=== PATIENT | male | born 1945 | race Asian ===

== ENCOUNTER 2016-12-14 14:59 | Outpatient (CLI) | payer MEDICARE, OTHER | END 2016-12-14 15:00 | disposition home or self-care (01) | LOC: LAB.N 14:59 | PROVIDERS: ATTEND Urology | DX: R97.20 Elevated prostate specific antigen [PSA] (principal) | CPT/HCPCS: 36415; 84153 ==

== ENCOUNTER 2017-06-01 10:11 | Outpatient (CLI) | payer MEDICARE, OTHER ==
[2017-06-01 13:10] LABS: BASOPHILS % (AUTO) 0.4 %; EOSINOPHILS # (AUTO) 0.2 10^3/uL (0.0-0.7); EOSINOPHILS % (AUTO) 3.4 %; HCT - HEMATOCRIT 33.9 % (42.0-52.0); HGB - HEMOGLOBIN 11.1 g/dL (14.0-18.0); LYMPHOCYTES # (AUTO) 2.6 10^3/uL (1.5-3.5); LYMPHOCYTES % (AUTO) 50.6 %; MEAN CORPUSCULAR HEMOGLOBIN 26.7 pg (27.0-31.0); MEAN CORPUSCULAR HGB CONC 32.6 g/dL (32.0-36.0); MEAN CORPUSCULAR VOLUME 81.9 fL (80.0-94.0); MEAN PLATELET VOLUME 7.7 fL (7.4-11.4); MONOCYTES # (AUTO) 0.5 10^3/uL (0.0-1.0); MONOCYTES % (AUTO) 8.7 %; NEUTROPHILS # (AUTO) 1.9 10^3/uL (1.5-6.6); NEUTROPHILS % (AUTO) 36.9 %; RED BLOOD COUNT 4.14 10^6/uL (4.70-6.10); RED CELL DISTRIBUTION WIDTH 17.1 % (12.0-15.0); UNCORRECTED WHITE BLOOD COUNT 5.2 x10^3/uL; WHITE BLOOD COUNT 5.2 x10^3/uL (4.8-10.8)
[2017-06-01 13:26] LABS: ALBUMIN/GLOBULIN RATIO 1.3 (1.0-2.2); BILIRUBIN,TOTAL 0.4 mg/dL (0.2-1.0); BUN - BLOOD UREA NITROGEN 20 mg/dL (6-20); CALCIUM 9.4 mg/dL (8.5-10.3); CARBON DIOXIDE - CO2 27 mmol/L (21-32); CHLORIDE 108 mmol/L (101-111); CHOL/HDL RATIO 3.7 (<5.0); CHOLESTEROL 183 mg/dL; CREATININE 1.3 mg/dL (0.6-1.2); GFR - MDRD 54 (>89); GLUCOSE 99 mg/dL (70-100); HDL CHOLESTEROL 49 mg/dL; LDL/HDL RATIO 1.9 (<3.6); POTASSIUM 3.8 mmol/L (3.5-5.0); SODIUM 142 mmol/L (135-145); TOTAL PROTEIN 7.2 g/dL (6.7-8.2); TRIGLYCERIDES 214 mg/dL; VLDL CHOLESTEROL 43 mg/dL
== END 2017-06-01 10:12 | disposition home or self-care (01) ==
LOC: LAB.N 10:11
PROVIDERS: ATTEND Physician Assistant
DX: E78.5 Hyperlipidemia, unspecified (principal); I10 Essential (primary) hypertension
CPT/HCPCS: 36415; 80053; 80061; 84443; 85025

== ENCOUNTER 2018-05-20 08:00 | Outpatient (CLI) | payer MEDICARE, OTHER ==
[2018-05-20 19:05] LABS: BASOPHILS % (AUTO) 0.3 %; EOSINOPHILS # (AUTO) 0.1 10^3/uL (0.0-0.7); EOSINOPHILS % (AUTO) 2.4 %; HGB - HEMOGLOBIN 10.5 g/dL (14.0-18.0); LYMPHOCYTES # (AUTO) 1.4 10^3/uL (1.5-3.5); LYMPHOCYTES % (AUTO) 26.9 %; MEAN CORPUSCULAR HEMOGLOBIN 26.2 pg (27.0-31.0); MEAN CORPUSCULAR HGB CONC 31.9 g/dL (32.0-36.0); MEAN PLATELET VOLUME 7.7 fL (7.4-11.4); MONOCYTES # (AUTO) 0.4 10^3/uL (0.0-1.0); MONOCYTES % (AUTO) 8.6 %; NEUTROPHILS # (AUTO) 3.2 10^3/uL (1.5-6.6); NEUTROPHILS % (AUTO) 61.8 %; PLT - PLATELET COUNT 255 10^3/uL (130-450); RED BLOOD COUNT 4.02 10^6/uL (4.70-6.10); RED CELL DISTRIBUTION WIDTH 16.6 % (12.0-15.0); WHITE BLOOD COUNT 5.2 x10^3/uL (4.8-10.8)
[2018-05-20 19:15] LABS: PSA FREE 5.579 ng/mL (0.16-2.81)
[2018-05-20 19:16] LABS: PSA TOTAL 20.067 ng/mL (0.000-2.000)
[2018-05-20 19:21] LABS: ALBUMIN 3.9 g/dL (3.2-5.5); ALBUMIN/GLOBULIN RATIO 1.1 (1.0-2.2); ALKALINE PHOSPHATASE 89 IU/L (42-121); ALT ALANINE AMINOTRANSFERASE 18 IU/L (10-60); AST ASPARTATE AMINOTRANSFERASE 22 IU/L (10-42); BILIRUBIN,TOTAL 0.8 mg/dL (0.2-1.0); BUN - BLOOD UREA NITROGEN 26 mg/dL (6-20); CALCIUM 9.1 mg/dL (8.5-10.3); CARBON DIOXIDE - CO2 26 mmol/L (21-32); CHLORIDE 105 mmol/L (101-111); CHOL/HDL RATIO 2.2 (<5.0); CHOLESTEROL 146 mg/dL; CREATININE 1.4 mg/dL (0.6-1.2); GFR - MDRD 50 (>89); GLUCOSE 87 mg/dL (70-100); HDL CHOLESTEROL 65 mg/dL; LDL CHOLESTEROL,CALCULATED 65 mg/dL; SODIUM 136 mmol/L (135-145); TOTAL PROTEIN 7.6 g/dL (6.7-8.2); VLDL CHOLESTEROL 16 mg/dL
== END 2018-05-20 08:01 | disposition home or self-care (01) ==
LOC: LAB.N 08:00
PROVIDERS: ATTEND Nurse Practitioner Gerontology
DX: I12.9 Hypertensive chronic kidney disease with stage 1 through stage 4 chronic kidney disease, or unspecified chronic kidney disease (principal); N18.9 Chronic kidney disease, unspecified; N40.0 Benign prostatic hyperplasia without lower urinary tract symptoms
CPT/HCPCS: 36415; 80053; 80061; 83721; 84154; 85025

== ENCOUNTER 2018-12-06 11:19 | Outpatient (CLI) | payer MEDICARE, OTHER ==
[2018-12-06] MEDS ORDERED: IOVERSOL 320 100 ML VIAL IVP ONE ×2 (11:48→12:28)
[2018-12-06 11:52] LABS: CREATININE 1.3 mg/dL (0.6-1.2)
--- NOTE | 2018-12-08 23:21 | CT Report ---
Reason: ASYMPTOMATIC MICROSCOPIC HEMATURIA Procedure Date: 12/06/2018 Accession Number: [id number] / [id number] Procedure: CT - IVP CPT Code: FULL RESULT: EXAM: CT ABDOMEN AND PELVIS WITHOUT AND WITH CONTRAST (CT IVP) EXAM DATE: 12/06/2018 12:35 PM. CLINICAL HISTORY: Asymptomatic microscopic hematuria. COMPARISONS: 04/30/2012 6:15 PM. TECHNIQUE: Routine helical imaging was performed through the kidneys, ureters and bladder in the precontrast, postcontrast and delayed phase. IV Contrast: 100 mL Optiray 320. Reconstructions: Coronal and sagittal. In accordance with CT protocol optimization, one or more of the following dose reduction techniques were utilized for this exam: automated exposure control, adjustment of mA and/or KV based on patient size, or use of iterative reconstructive technique. FINDINGS: Lung Bases: Unremarkable. Right Kidney/Ureter: Couple of nonobstructing stones measuring up to 4 x 4 mm. No ureteral stones, hydronephrosis, or solid-appearing masses. Incidental multiple cysts measuring up to 7 x 6 cm medially off the upper pole. Left Kidney/Ureter: Couple of nonobstructing stones measuring up to 8 x 6 mm. No ureteral stones, hydronephrosis, or solid-appearing masses. Incidental multiple cysts measuring up to 9 x 9 cm anteriorly off the interpolar portion of the kidney. Other Abdominal Organs: The liver, spleen, pancreas, gallbladder, and adrenal glands are unremarkable with a couple of small left liver probable cysts. Peritoneal Cavity/Bowel: No free fluid, free air or adenopathy. No masses. Bowel loops appear unremarkable with exception of colonic diverticulosis. Pelvic Organs: Severely enlarged prostate with median lobe hypertrophy indenting into the inferior aspect of the bladder. The bladder otherwise appears unremarkable. Vasculature: Normal. Bones: No significant abnormality. Other: None. IMPRESSION: 1. Bilateral nonobstructing renal stones measuring up to 8 mm on the left. 2. No solid-appearing renal or urothelial mass seen. 3. Bilateral renal cyst measuring up to 9 cm on the left and 7 cm on the right. 4. Severely enlarged prostate with median lobe hypertrophy indenting into the inferior aspect of the bladder. 5. Colonic diverticulosis. RADIA
== END 2018-12-06 11:20 | disposition home or self-care (01) ==
LOC: DI 11:19
PROVIDERS: ATTEND Urology
DX: N20.0 Calculus of kidney (principal); Q61.02 Congenital multiple renal cysts; N40.0 Benign prostatic hyperplasia without lower urinary tract symptoms; K57.30 Diverticulosis of large intestine without perforation or abscess without bleeding
CPT/HCPCS: 36415; 74178; 82565; 84520; Q9967

== ENCOUNTER 2019-07-09 08:00 | Outpatient (CLI) | payer MEDICARE, OTHER ==
[2019-07-09 18:59] LABS: BASOPHILS % (AUTO) 0.2 %; EOSINOPHILS # (AUTO) 0.1 10^3/uL (0.0-0.7); EOSINOPHILS % (AUTO) 2.5 %; HGB - HEMOGLOBIN 11.2 g/dL (14.0-18.0); LYMPHOCYTES # (AUTO) 1.5 10^3/uL (1.5-3.5); LYMPHOCYTES % (AUTO) 34.5 %; MEAN CORPUSCULAR HEMOGLOBIN 25.3 pg (27.0-31.0); MEAN CORPUSCULAR HGB CONC 30.3 g/dL (32.0-36.0); MEAN CORPUSCULAR VOLUME 83.7 fL (80.0-94.0); MEAN PLATELET VOLUME 10.1 fL (7.4-11.4); MONOCYTES # (AUTO) 0.4 10^3/uL (0.0-1.0); MONOCYTES % (AUTO) 8.5 %; NEUTROPHILS # (AUTO) 2.4 10^3/uL (1.5-6.6); NEUTROPHILS % (AUTO) 54.1 %; PLT - PLATELET COUNT 233 10^3/uL (130-450); RED BLOOD COUNT 4.42 10^6/uL (4.70-6.10); RED CELL DISTRIBUTION WIDTH 18.1 % (12.0-15.0); WHITE BLOOD COUNT 4.5 x10^3/uL (4.8-10.8)
[2019-07-09 19:18] LABS: PSA FREE 2.215 ng/mL (0.16-2.81)
[2019-07-09 19:19] LABS: PSA TOTAL 8.541 ng/mL (0.000-2.000)
[2019-07-09 19:20] LABS: ALBUMIN 4.1 g/dL (3.2-5.5); ALBUMIN/GLOBULIN RATIO 1.2 (1.0-2.2); ALKALINE PHOSPHATASE 67 IU/L (42-121); ALT ALANINE AMINOTRANSFERASE 17 IU/L (10-60); AST ASPARTATE AMINOTRANSFERASE 21 IU/L (10-42); BILIRUBIN,TOTAL 0.5 mg/dL (0.2-1.0); BUN - BLOOD UREA NITROGEN 24 mg/dL (6-20); CALCIUM 9.4 mg/dL (8.5-10.3); CARBON DIOXIDE - CO2 24 mmol/L (21-32); CHLORIDE 107 mmol/L (101-111); CHOL/HDL RATIO 2.6 (<5.0); CHOLESTEROL 193 mg/dL; CREATININE 1.3 mg/dL (0.6-1.2); GFR - MDRD 54 (>89); GLUCOSE 89 mg/dL (70-100); HDL CHOLESTEROL 74 mg/dL; LDL CHOLESTEROL,CALCULATED 106 mg/dL; LDL/HDL RATIO 1.4 (<3.6); SODIUM 139 mmol/L (135-145); TOTAL PROTEIN 7.4 g/dL (6.7-8.2); VLDL CHOLESTEROL 13 mg/dL
== END 2019-07-09 23:59 | disposition home or self-care (01) ==
LOC: LAB.N 08:00
PROVIDERS: ATTEND Nurse Practitioner Gerontology
DX: D64.9 Anemia, unspecified (principal); I12.9 Hypertensive chronic kidney disease with stage 1 through stage 4 chronic kidney disease, or unspecified chronic kidney disease; N18.9 Chronic kidney disease, unspecified; N40.0 Benign prostatic hyperplasia without lower urinary tract symptoms
CPT/HCPCS: 36415; 80053; 80061; 83721; 84153; 84154; 85025

== ENCOUNTER 2019-11-24 14:41 | Outpatient (CLI) | payer MEDICARE, OTHER ==
--- NOTE | 2019-11-25 10:17 | XRAY Report ---
Reason: CALCULUS OF KIDNEY Procedure Date: 11/24/2019 Accession Number: [id number] / [id number] Procedure: XR - Abdomen 1 View X-Ray CPT Code: 48009 Final Report FULL RESULT: EXAM: ABDOMEN RADIOGRAPHY EXAM DATE: 11/24/2019 03:26 PM. CLINICAL HISTORY: CALCULUS OF KIDNEY. COMPARISON: ABDOMEN 1 VIEW 05/26/2019 4:28 PM. TECHNIQUE: 1 view. FINDINGS: Bowel Gas Pattern: Within normal limits. No dilated loops. Other: Left midpole 1 cm and 3 mm calcification stable. Right midpole 3-4 mm calcification. IMPRESSION: Bilateral renal calcifications RADIA
== END 2019-11-24 14:42 | disposition home or self-care (01) ==
LOC: DI 14:41
PROVIDERS: ATTEND Urology
DX: N20.0 Calculus of kidney (principal)
CPT/HCPCS: 74018

== ENCOUNTER 2021-03-03 08:00 | Outpatient (CLI) | payer MEDICARE, OTHER ==
[2021-03-03 18:52] LABS: BASOPHILS % (AUTO) 0.8 %; EOSINOPHILS # (AUTO) 0.1 10^3/uL (0.0-0.7); EOSINOPHILS % (AUTO) 2.5 %; HGB - HEMOGLOBIN 14.1 g/dL (14.0-18.0); LYMPHOCYTES # (AUTO) 1.7 10^3/uL (1.5-3.5); LYMPHOCYTES % (AUTO) 32.8 %; MEAN CORPUSCULAR HEMOGLOBIN 29.6 pg (27.0-31.0); MEAN CORPUSCULAR VOLUME 92.4 fL (80.0-94.0); MEAN PLATELET VOLUME 10.8 fL (7.4-11.4); MONOCYTES # (AUTO) 0.4 10^3/uL (0.0-1.0); NEUTROPHILS # (AUTO) 2.9 10^3/uL (1.5-6.6); NEUTROPHILS % (AUTO) 56.5 %; PLT - PLATELET COUNT 218 10^3/uL (130-450); RED BLOOD COUNT 4.76 10^6/uL (4.70-6.10); RED CELL DISTRIBUTION WIDTH 13.4 % (12.0-15.0); WHITE BLOOD COUNT 5.2 x10^3/uL (4.8-10.8)
[2021-03-03 19:14] LABS: ALBUMIN 4.3 g/dL (3.2-5.5); ALBUMIN/GLOBULIN RATIO 1.4 (1.0-2.2); ALKALINE PHOSPHATASE 89 IU/L (42-121); ALT ALANINE AMINOTRANSFERASE 19 IU/L (10-60); AST ASPARTATE AMINOTRANSFERASE 23 IU/L (10-42); BILIRUBIN,TOTAL 0.6 mg/dL (0.2-1.0); BUN - BLOOD UREA NITROGEN 18 mg/dL (6-20); CALCIUM 9.5 mg/dL (8.5-10.3); CARBON DIOXIDE - CO2 24 mmol/L (21-32); CHLORIDE 107 mmol/L (101-111); CHOL/HDL RATIO 3.5 (<5.0); CHOLESTEROL 207 mg/dL; GFR - MDRD 73 (>89); GLUCOSE 89 mg/dL (70-100); HDL CHOLESTEROL 59 mg/dL; LDL CHOLESTEROL,CALCULATED 119 mg/dL; POTASSIUM 4.1 mmol/L (3.5-5.0); SODIUM 140 mmol/L (135-145); TOTAL PROTEIN 7.3 g/dL (6.7-8.2); TRIGLYCERIDES 144 mg/dL; VLDL CHOLESTEROL 29 mg/dL
[2021-03-03 19:23] LABS: THYROID STIMULATING HORMONE 1.01 uIU/mL (0.34-5.60)
== END 2021-03-03 23:59 | disposition home or self-care (01) ==
LOC: LAB.WCP 08:00
PROVIDERS: ATTEND Nurse Practitioner Family
DX: D64.9 Anemia, unspecified (principal); I12.9 Hypertensive chronic kidney disease with stage 1 through stage 4 chronic kidney disease, or unspecified chronic kidney disease; N18.9 Chronic kidney disease, unspecified; E78.5 Hyperlipidemia, unspecified
CPT/HCPCS: 36415; 80053; 80061; 83721; 84443; 85025

== ENCOUNTER 2021-04-11 08:00 | Outpatient (CLI) | payer MEDICARE, OTHER ==
[2021-04-11 12:25] LABS: BASOPHILS % (AUTO) 0.4 %; EOSINOPHILS # (AUTO) 0.1 10^3/uL (0.0-0.7); EOSINOPHILS % (AUTO) 2.6 %; HCT - HEMATOCRIT 42.4 % (42.0-52.0); HGB - HEMOGLOBIN 13.4 g/dL (14.0-18.0); LYMPHOCYTES # (AUTO) 1.5 10^3/uL (1.5-3.5); LYMPHOCYTES % (AUTO) 28.9 %; MEAN CORPUSCULAR HEMOGLOBIN 29.5 pg (27.0-31.0); MEAN CORPUSCULAR HGB CONC 31.6 g/dL (32.0-36.0); MEAN CORPUSCULAR VOLUME 93.2 fL (80.0-94.0); MEAN PLATELET VOLUME 10.2 fL (7.4-11.4); MONOCYTES # (AUTO) 0.4 10^3/uL (0.0-1.0); MONOCYTES % (AUTO) 8.3 %; NEUTROPHILS # (AUTO) 3.1 10^3/uL (1.5-6.6); NEUTROPHILS % (AUTO) 59.4 %; PLT - PLATELET COUNT 270 10^3/uL (130-450); RED BLOOD COUNT 4.55 10^6/uL (4.70-6.10); RED CELL DISTRIBUTION WIDTH 13.7 % (12.0-15.0); WHITE BLOOD COUNT 5.3 x10^3/uL (4.8-10.8)
[2021-04-11 13:00] LABS: ALBUMIN 4.1 g/dL (3.2-5.5); ALBUMIN/GLOBULIN RATIO 1.4 (1.0-2.2); BILIRUBIN,TOTAL 0.7 mg/dL (0.2-1.0); CALCIUM 9.3 mg/dL (8.5-10.3); CREATININE 1.2 mg/dL (0.6-1.2); POTASSIUM 4.1 mmol/L (3.5-5.0); TOTAL PROTEIN 7.1 g/dL (6.7-8.2)
== END 2021-04-11 23:59 | disposition home or self-care (01) ==
LOC: LAB.WCP 08:00
PROVIDERS: ATTEND Family Medicine
DX: R10.13 Epigastric pain (principal); R97.20 Elevated prostate specific antigen [PSA]
CPT/HCPCS: 36415; 80053; 83690; 84153; 85025

== ENCOUNTER 2021-04-13 08:24 | Outpatient (CLI) | payer MEDICARE, OTHER ==
--- NOTE | 2021-04-13 10:07 | Ultrasound Report ---
PROCEDURE: Abdomen Complete INDICATIONS: EPIGASTRIC ABD PAIN, ELEVATED LIPASE TECHNIQUE: Real-time scanning was performed of the abdominal and retroperitoneal organs, with image documentatio n. COMPARISON: Noncontrast CT 12/06/2018, ultrasound abdomen report 04/30/2012 FINDINGS: Liver: Liver is normal in size and homogeneous in echotexture. Small hepatic simple cyst measuring 16 x 13 mm and 9 x 8 mm. Gallbladder: Unremarkable. No pericholecystic fluid or gallbladder wall thickening. Biliary ducts: Intrahepatic bile ducts are non-dilated. Extrahepatic bile duct caliber measures 4.2 mm. Normal is 6-7 mm or less in diameter, or 10 mm or less post-cholecystectomy. Pancreas: Not well visualized Spleen: Spleen is normal in size and homogeneous in echotexture. Kidneys: Right kidney measures 10.4 cm long; left kidney measures 10.6 cm long. Both kidneys have a ppropriate cortical thickness. Stable bilateral renal cysts present. Largest on the right measures 5. 25 4.2 x 3.6 cm and the largest on the left measures 9.7 x 7.9 x 9.3 cm. There is a 1.1 cm nonobstruc ting shadowing left renal calculus. No hydronephrosis. Aorta: Visualized aorta is normal in caliber at less than 3 cm. Iliacs: Proximal common iliac arteries are normal in caliber at less than 2.5 cm. IVC: Intrahepatic inferior vena cava is patent. Miscellaneous: No free abdominal fluid. IMPRESSION: 1. Stable large bilateral renal simple cysts, largest measures 9.7 cm on the left. 2. Small hepatic cysts also similar to prior exams 3. Nonvisualized pancreas overlying bowel gas Reviewed by: Derrek Butt MD on 04/13/2021 9:06 AM [facility] Approved by: Derrek Butt MD on 04/13/2021 9:06 AM [facility] Station ID: [id number]
== END 2021-04-13 08:25 | disposition home or self-care (01) ==
LOC: DI 08:24
PROVIDERS: ATTEND Family Medicine
DX: R10.13 Epigastric pain (principal); R74.8 Abnormal levels of other serum enzymes; N28.1 Cyst of kidney, acquired; K76.89 Other specified diseases of liver

== ENCOUNTER 2022-10-10 14:44 | Outpatient (CLI) | payer MEDICARE, OTHER ==
[2022-10-10 18:06] LABS: ALBUMIN 4.1 g/dL (3.2-5.5); ALBUMIN/GLOBULIN RATIO 1.2 (1.0-2.2); ALKALINE PHOSPHATASE 90 IU/L (42-121); ALT ALANINE AMINOTRANSFERASE 20 IU/L (10-60); AST ASPARTATE AMINOTRANSFERASE 31 IU/L (10-42); BILIRUBIN,TOTAL 0.8 mg/dL (0.2-1.0); BUN - BLOOD UREA NITROGEN 21 mg/dL (6-20); CALCIUM 9.5 mg/dL (8.5-10.3); CARBON DIOXIDE - CO2 29 mmol/L (21-32); CHLORIDE 105 mmol/L (101-111); CHOL/HDL RATIO 3.5 (<5.0); CHOLESTEROL 218 mg/dL; CREATININE 1.3 mg/dL (0.6-1.2); GFR - MDRD 54 (>89); GLUCOSE 99 mg/dL (70-100); HDL CHOLESTEROL 63 mg/dL; LDL CHOLESTEROL,CALCULATED 142 mg/dL; LDL/HDL RATIO 2.3 (<3.6); POTASSIUM 4.4 mmol/L (3.5-5.0); SODIUM 143 mmol/L (135-145); TOTAL PROTEIN 7.5 g/dL (6.7-8.2); TRIGLYCERIDES 66 mg/dL; VLDL CHOLESTEROL 13 mg/dL
[2022-10-10 18:10] LABS: BASOPHILS % (AUTO) 0.5 %; EOSINOPHILS # (AUTO) 0.2 10^3/uL (0.0-0.7); EOSINOPHILS % (AUTO) 3.3 %; LYMPHOCYTES % (AUTO) 35.5 %; MEAN CORPUSCULAR HEMOGLOBIN 30.4 pg (27.0-31.0); MEAN CORPUSCULAR HGB CONC 31.8 g/dL (32.0-36.0); MEAN CORPUSCULAR VOLUME 95.4 fL (80.0-94.0); MONOCYTES # (AUTO) 0.5 10^3/uL (0.0-1.0); MONOCYTES % (AUTO) 8.7 %; NEUTROPHILS # (AUTO) 2.9 10^3/uL (1.5-6.6); NEUTROPHILS % (AUTO) 51.8 %; PLT - PLATELET COUNT 239 10^3/uL (130-450); RED BLOOD COUNT 4.61 10^6/uL (4.70-6.10); WHITE BLOOD COUNT 5.5 x10^3/uL (4.8-10.8)
[2022-10-10 18:28] LABS: THYROID STIMULATING HORMONE 1.39 uIU/mL (0.34-5.60)
[2022-10-10 20:34] LABS: ESTIMATED AVERAGE GLUCOSE 128 mg/dL (70-100); HEMOGLOBIN A1c% 6.1 % (4.27-6.07)
== END 2022-10-10 14:45 | disposition home or self-care (01) ==
LOC: LAB.N 14:44
PROVIDERS: ATTEND Nurse Practitioner Family
DX: I12.9 Hypertensive chronic kidney disease with stage 1 through stage 4 chronic kidney disease, or unspecified chronic kidney disease (principal); N18.9 Chronic kidney disease, unspecified; N40.0 Benign prostatic hyperplasia without lower urinary tract symptoms; E78.5 Hyperlipidemia, unspecified
CPT/HCPCS: 36415; 80053; 80061; 83036; 83721; 84153; 84443; 85025

== ENCOUNTER 2023-01-06 11:16 | Outpatient (CLI) | payer MEDICARE, OTHER ==
[2023-01-06] MEDS ORDERED: iohexoL-300 100 ML VIAL ONE (11:41)
[2023-01-06 12:04] LABS: CREATININE 1.4 mg/dL (0.6-1.2)
[2023-01-06] MEDS ORDERED: iohexoL-300 100 ML VIAL IVP ONE (15:50)
--- NOTE | 2023-01-06 22:03 | CT Report ---
PROCEDURE: IVP INDICATIONS: MICROSCOPIC HEMATURIA CONTRAST: 140ml omni 300 TECHNIQUE: After the administration of intravenous contrast, 5 mm thick sections acquired from the diaphragms to the symphysis. 5 mm thick coronal and sagittal reformats were acquired. For radiation dose reducti on, the following was used: automated exposure control, adjustment of mA and/or kV according to rafita ent size. COMPARISON: None. FINDINGS: Image quality: Excellent. Lung bases: There is bibasilar atelectasis. There is bibasilar atelectasis. Heart size is normal. Urinary system: Both kidneys are normal in size and enhancement. Contrast-filled renal calyces are normal in morphology. Contrast filled portions of both ureters are normal in caliber. Both kidneys h ave multiple cysts, the largest on the right measuring 4 cm in the largest on the left measuring 10 c m. Both kidneys have nonobstructing calculi measuring 6 mm on the right and 9 mm on the left. Bladder wall thickness is normal. Solid organs: There is a 1.5 cm cyst in the left lobe of the liver. Gallbladder is normal. Biliary system is non dilated. Pancreas enhances normally. No adrenal nodules. Peritoneum and bowel: Bowel loops demonstrate normal wall thickness and caliber. There is diverticu losis without evidence of diverticulitis. No free fluid or air. Nodes and vessels: No retroperitoneal or mesenteric adenopathy by size criteria. Aorta and inferior vena cava are normal in size. Abdominal wall: No ventral hernias. Fat-containing inguinal hernias. Pelvis: No pathologic free pelvic fluid. No inguinal hernias or adenopathy. The prostate is enlarg ed measuring 5.5 x 5.5 cm and bulges into the posterior wall of the bladder. Bones: No suspicious bony lesions. No vertebral body compression fractures. IMPRESSION: 1. No obstructing nephroureterolithiasis. 2. No solid masses. 3. Multiple bilateral simple renal cysts the largest measuring 4 cm on the right and 10 cm in the lef t. 4. Prostatomegaly measuring 5.5 x 5.5 cm axially. The prostate bulges into the posterior wall of the bladder. Reviewed by: Suleman Vences on 01/06/2023 9:02 PM [facility] [place] Approved by: Suleman Vences on 01/06/2023 9:02 PM [facility] [place] Station ID: [id number]
== END 2023-01-06 11:17 | disposition home or self-care (01) ==
LOC: LAB 11:16
PROVIDERS: ATTEND Urology
DX: R31.29 Other microscopic hematuria (principal); N28.1 Cyst of kidney, acquired; N40.1 Benign prostatic hyperplasia with lower urinary tract symptoms
CPT/HCPCS: 36415; 74178; 82565; 84520; Q9967

== ENCOUNTER 2024-04-29 10:51 | Outpatient (CLI) | payer MEDICARE, OTHER ==
--- NOTE | 2024-04-29 11:14 | CARDIAC PROCEDURE NOTE ---
Stress Test Report Service Date: 04/29/24 Service Time: 11:00 Ordering Provider: Evelin Lange ARNP, CFNP Indication for Test: Assess atypical chest discomfort and reported heart murmur. Significant Medical History: Doug is referred for a treadmill stress echocardiogram today, to assess his concern for intermittent, non-radiating left chest discomfort that started approximately 6-7 months ago, which occurs almost exclusively when he is at rest and lying down; he gives examples of this occurring while he is watching TV during the daytime or awaiting sleep in the evening. He has also been noted to have a heart murmur of undetermined etiology. He has a significant CAD risk factor profile, most notable for longstanding hypertension, dyslipidemia and "prediabetes". However he worked full-time until about a year ago and remains v annabelle active, exercising regularly on a treadmill, with fast walking, even jogging, several times weekly, during which he experiences no chest discomfort nor significant shortness of breath. He is on a complex multidrug antihypertensive regimen that includes amlodipine 10 mg daily, atenolol 50 mg QAM, chlorthalidone 25 mg daily, losartan 100 mg QAM and although he was instructed to hold his atenolol today, he took it by mistake and omitted his losartan dose. Cardiac Risk Factors: Positive for hypertension (treated for more than 20 years), hyperlipidemia (previously treated with statin but not presently, with fasting lipid panel in 11/28 including TChol 219, LDLc 117, HDLc 59, TG 213) and prediabetes; the patient reports that his father following a stroke at age 68 but he is not aware of close family members with coronary heart disease. No history of cigarette smoking in the past. Type of Stress Test: ETT with Echocardiography Procedure: -Exercise Treadmill Test- After signing informed consent, the patient underwent echo imaging at rest and then performed treadmill exercise using a Julio protocol. The patient exercised for 11 minutes 37 seconds and achieved a peak heart rate of 130 (91 percent predicted maximum heart rate for age), and an estimated workload of 13.5 METS. The test was terminated due to fatigue/shortness of breath. Resting heart rate: 55 Peak heart rate: 130 Normal HR response to exercise. Resting BP: 128/78 Peak BP: 181/65 Normal BP response to exercise. Room air oxygen saturation during exercise ranged between 95-98%. Rhythm during exercise: Sinus rhythm throughout, with rare isolated PACs; no PVCs recorded. Symptoms: He denied experiencing any chest pressure/discomfort/pain. EKG at rest showed sinus bradycardia with probable left atrial abnormality and normal/interpretable ST/T pattern. EKG at peak stress was highly limited by artifact but does not show consistent ST depression that would be convincing for inducible ischemia. In Recovery HR and BP decreased rapidly/normally to near resting levels at 5:00 (HR 81, BP 137/52). Echo imaging, performed at rest and with stress, will be reported separately. Aidan Redding MD, was present throughout this treadmill stress study and supervised it in its entirety Summary: 1) Exercise tolerance was markedly above average for age and sex as evidenced by ELIJAH of -80% (compared to men of 70-75 yrs of age). 2) Normal resting EKG. 3) Adequate level of exercise was achieved on this treadmill stress test. 4) Normal BP response to exercise. 5) No ischemic changes by EKG criteria were seen at peak stress. 6) Echo image interpretation reveals normal resting left ventricular size, wall thickness and systolic function, with mild-moderate tricuspid regurgitation seen on screening study, but with low TR jet velocity NOT predicting elevation of est imated pulmonary artery systolic pressure; there was no significant valvular abnormality observed. Following peak exercise there was appropriate hyperdynamic augmentation of all segments observed, indicating no evidence of prior infarct or inducible ischemia. See separate report for more details. Conclusions and Recommendations: 1) This a reassuring treadmill stress echocardiogram study, with normal hemodynamic responses, exercise time markedly increased for age and gender without symptom, EKG or echocariographic evidence of inducible ischemia. 2) Low velocity tricuspid regurgitation was observed without clear structural valvular abnormality. This finding should not warrant additional evaluation, unless the patient becomes edematous or short of breath with exertion.
== END 2024-04-29 10:52 | disposition home or self-care (01) ==
LOC: DI 10:51
PROVIDERS: ATTEND Nurse Practitioner Family
DX: R07.9 Chest pain, unspecified (principal); R01.1 Cardiac murmur, unspecified; I10 Essential (primary) hypertension; E78.5 Hyperlipidemia, unspecified; R73.03 Prediabetes; Z82.3 Family history of stroke
CPT/HCPCS: 93350